=== PATIENT | female | born 1960 | race Caucasian/White ===

== ENCOUNTER → 2016-09-10 | Outpatient (CLI) | payer BC ==
[~2016-09-10] MED LIST: CINNAMON500 MG PO; FISH OIL1000 MG PO; GLUCOPHAGE1000 MG PO; PROZAC40 MG PO; SYNTHROID 0.0.025 MG PO; VITAMIN D1000 IU PO
== END ==
LOC: COL.RAD 09-04 15:00
DX: Z01.812 Encounter for preprocedural laboratory examination (principal); R91.1 Solitary pulmonary nodule; J43.9 Emphysema, unspecified; I77.810 Thoracic aortic ectasia; J98.4 Other disorders of lung; Z90.49 Acquired absence of other specified parts of digestive tract
CPT/HCPCS: Q9967

== ENCOUNTER 2022-12-05 07:43 | Inpatient (IN) | payer BC ==
[~2022-12-05] VITALS: Ht 172.7 cm; Wt 55.0 kg
[~2022-12-05 07:43] MED LIST changes: +B COMPLEX #11 TA1 PO; +GLUCOPHAGE XR750 MG PO; +INDERAL LA 60MG60 MG; +LIPITOR 10MG10 MG PO; +MELATONIN5 M1 PO; +MULTIVITAMIN FO1 CAP PO; +NEURONTIN300 MG/CAP PO; +PRIL40 PO; +SARAFEM20 M1 PO; +SYNTHROID0.112 MG/T PO; +UNISOM25 MG PO; +VITAMIN B12 781 TAB PO
[2022-12-05] MEDS ORDERED: NICODERM C21 MG/PATC TD (07:49)
[2022-12-05] MEDS ORDERED: ASPI325T6 PO (07:49)
[2022-12-05] MEDS ORDERED: ROXICODONE 55 MG/TAB PO (07:50)
[2022-12-05] MEDS ORDERED: TYLENOL 500MG500 MG PO (07:50)
[2022-12-05] MEDS ORDERED: OSCAL 500 TAB500 MG PO (07:50)
[2022-12-05] MEDS ORDERED: SENOKOT S 50 MG1 TAB PO (07:51)
[2022-12-05] MEDS ORDERED: VITAMIN C500 MG PO (07:51)
[2022-12-05 10:45] VITALS: BP 106/61; BP_SYST 61; PULSE 80; TEMP 98.5
--- NOTE | 2022-12-05 11:39 | NUR ---
PT ARRIVED TO UNIT VIA WHEELCHAIR FROM SURGICAL. PHISICAL THERAPY AT THE BEDSIDE TO EVAL PATIENT. PT ALERT AND ORIENTED. UPON OBTAINING VITAL SIGNS LOW O2 NOTED PT PUT ON 2 LITERS O2 VIA NASAL CANNULA. SATURATION IMPROVED. MEWS SCORE OF 4 NOTED. WILL REASSESS. CALL LIGHT WITHIN REACH.
[2022-12-05 13:01] VITALS: BP_SYST 106
--- NOTE | 2022-12-05 15:51 | NUR ---
Shower completed w/ OT this afternoon. Skin assessment completed by RNs: 1 abrasion to LLE w/ bruising. 1 laceration to left elbow - site cleaned w/ NS, covered w/ vaseline gauze, Telfa, tegaderm. 1 abrasion to right forearm noted to be bleeding - site cleansed w/ NS, covered w/ vaseline gauze, Telfa, tegaderm. Bruising noted to back of left elbow. Bruising noted to left AC site & finger of left hand. Fiberglass cast CDI to LUE. Bulky dressing to left hip CDI. No edema noted at the time of this assessment.
[2022-12-05 17:06] VITALS: BP 120/51; PULSE 87; TEMP 98.4
[2022-12-05 17:39] VITALS: BP 120/51; PULSE 87; TEMP 98.4
[2022-12-05 17:45] VITALS: BP_SYST 120
--- NOTE | 2022-12-05 19:30 | NUR ---
RECEIVED CHANGE OF SHIFT REPORT FROM DAY SHIFT RN. PATIENT RESTING IN BED, VISITORS IN ROOM, EXIT ALARM ON WITH CALL LIGHT IN REACH. DENIES ANY NEEDS AT TIME OF REPORT. OXYGEN CONTINUES PER NC.
[2022-12-06 05:08] VITALS: BP 139/68; PULSE 90; TEMP 98.4
[2022-12-06 07:00] VITALS: BP_SYST 139
--- NOTE | 2022-12-06 07:00 | NUR ---
PT RESTING IN BED. PT WEARING 2L NC. PT IS AXOX3. PT HAS CALL LIGHT AND INSTRUCTED TO CALL WTIH ALL NEEDS.
--- NOTE | 2022-12-06 07:22 | NUR ---
CHANGE OF SHIFT REPORT GIVEN TO DAY SHIFT DANI. PALOMO
--- NOTE | 2022-12-06 09:10 | NUR ---
PT DOWN TO THERAPY GYM
[2022-12-06 14:58] LABS: CREATININE, serum 0.66 mg/dL (0.57-1.11); POTASSIUM 3.3 mmol/L (3.5-4.5)
--- NOTE | 2022-12-06 16:13 | NUR ---
Head Greenskeeper and SW student met with Patient at bedside to conudct Care Managment ASsessment and brief SW role in IPR. Patient lives in [place], [place] with her and is established with PCP Dr. Leone. Patient requests discharge medications be sent to [facility]. Patient states that she has no stairs at home and states that she has grab bars in both bathrooms of her home. Patient states that she has familial and community supports. Patient reports to anticipate having reliable transportation when discharged. Patient inquires about the cost to rent a hospital bed, reporting that she is concerned with not having the assistance of grab bars on her bed at home.
[2022-12-06 17:19] VITALS: BP 119/96; PULSE 86; TEMP 98.3
[2022-12-06 19:00] VITALS: BP_SYST 119
--- NOTE | 2022-12-06 19:19 | NUR ---
REPORT RECEIVED FROM RODRIGO CULVER. PT RESTING IN BED AND TALKING WITH HER DAUGHTER. PT DENIES PAIN OR DISCOMFORT. CALL LIGHT IN PLACE. ALL NEEDS MET AT THIS TIME.
--- NOTE | 2022-12-06 20:01 | NUR ---
SHIFT ASSESSMENT COMPLETE, SEE DOCUMENTATION. PT RESTING IN BED WITH HER SON IN LAW AT BEDSIDE. NO C/O PAIN OR DISCOMFORT. CALL LIGHT IN PLACE. ALL NEEDS MET AT THIS TIME.
[2022-12-07 06:35] VITALS: BP 129/65; PULSE 80; TEMP 98.3
[2022-12-07 07:00] VITALS: BP_SYST 129
--- NOTE | 2022-12-07 08:45 | NUR ---
PATIENT AWAKE AND ALERT, RESTING IN BED. PATIENT DENIES ANY NEEDS OR COMPLAINTS AT THIS TIME. PATIENT SITTING UP , EATING BREAKFAST. FALL PRECAITIONS IN PLACE. CALL LIGHT WITHIN REACH.
--- NOTE | 2022-12-07 11:20 | NUR ---
Has lack of transportation kept you from medical appts, meetings, work, or from getting things needed for daily living? NO How often do you feel lonely or isolated from those around you? RARELY Over the past 5 days, how much of the time has pain made it hard for you to sleep? FREQUENTLY Over the past 5 days, how often have you limited your participation in therapy due to pain? RARELY/NOT AT ALL Over the past 5 days, how often have you limited your day-to-day activities because of pain? RARELY/NOT AT ALL Have you had 2 or more falls in the past year or any fall with an injury? YES Did you have major surgery during the 100 days prior to admission? YES
--- NOTE | 2022-12-07 13:55 | NUR ---
EDDA WITH PT
--- NOTE | 2022-12-07 15:44 | NUR ---
Armhole Baster Jumpbasting and SW student met with Patient to review progress towards treatment goals and review potential discharge services. Patient reports to be making progress towards treatment goals despite feeling fatigue after therapies. SW reviewed potential Home Health PT or OPPT when discharged. Patient presents with no concerns at this time.
[2022-12-07 17:24] VITALS: BP 128/62; PULSE 86; TEMP 98.7
[2022-12-07 19:00] VITALS: BP_SYST 128
--- NOTE | 2022-12-07 22:38 | NUR ---
SHIFT ASSESSMENT COMPLETE. VSS. A&OX4. ALL NIGHT MEDS GIVEN PER ORDER. PATIENT HAS PAIN 3/10. PAIN MEDS GIVEN PER ORDER. PATIENT ONLY COMPLAINS OF ROOM BEING HOT. CONTACTED SERVER SERVICE ASSISTANT AND HAD A FAN BROUGHT TO ROOM TO HELP COOL ROOM A BIT. PATIENT GREATFUL. PATIENT HAS NO OTHER COMPAINTS AT THIS TIME. FALL PRECAUTIONS IN PLACE AND CALL LIGHT IN REACH.
[2022-12-08 06:33] VITALS: BP 136/79; PULSE 81; TEMP 98.3
[2022-12-08 07:00] VITALS: BP_SYST 136
[2022-12-08 07:53] LABS: MEAN CELL VOLUME 88 fl (80.0-100.0); MEAN CORPUSCULAR HGB CONC 31 g/dl (33.0-37.0); PLATELET COUNT 362 K/mm3 (130-400); RED BLOOD COUNT 2.62 M/mm3 (4.10-5.30); REDCELL DISTRIBUTION WIDTH-CV 15.3 % (11.5-14.5)
[2022-12-08 07:54] LABS: HEMOGLOBIN 7.2 g/dl (12.5-16.0); MEAN CORPUSCULAR HEMOGLOBIN 27 pg (27-31)
[2022-12-08 08:20] LABS: CALCIUM 8.6 mg/dL (8.4-10.2); CREATININE, serum 0.6 mg/dL (0.57-1.11); POTASSIUM 3.2 mmol/L (3.5-4.5)
[2022-12-08 08:49] LABS: EOSINOPHIL 5 % (0-4); LYMPHOCYTE 14 % (20.0-51.0); METAMYELOCYTE 3 % (0-0); NEUTROPHILS 69 % (42.0-75.2)
[2022-12-08 08:50] LABS: PLATELET ESTIMATE NORMAL (NORMAL)
[2022-12-08 08:51] LABS: ANISOCYTOSIS 1+
--- NOTE | 2022-12-08 10:33 | NUR ---
PT ALERT AND ORIENTED. SITTING UP IN BED WATCHING TV, IS REQUESTING TO MOVE ROOMS R/T UNCLEAR PICTURE ON TV AFTER BEING REPLACED BY MAINTENANCE. VITAL SIGNS STABLE. SHE IS ON 2 LITERS OF O2 NC. WILL REPALCE POTASSIUM PER PROTOCOL. PT IS ABLE TO TRANSFER 1 ASSIST TO BSC. PROVIDER NOTIFIED OF HGB. HEAD TO TOE ASSESSMENT COMPLETE. CALL LIGHT WITHIN REACH. BED ALARM SET.
--- NOTE | 2022-12-08 11:52 | NUR ---
Retail Business Development Manager rounds: Patient accepted Retail Business Development Manager visit. A/C had not been working in her room for three days prior to today. TV is not getting good stenographer secretary today. Patient noticed that she had to go to therapy soon and needed to use the restroom first. She asked Retail Business Development Manager to return later today. Retail Business Development Manager prayed for her.
--- NOTE | 2022-12-08 13:29 | NUR ---
Kineseologist follow-up visit: Patient has her Sister and [id number] visiting.
[2022-12-08 17:16] VITALS: BP 110/59; PULSE 80; TEMP 98.2
[2022-12-08 19:00] VITALS: BP_SYST 110
--- NOTE | 2022-12-08 19:25 | NUR ---
REPORT RECIEVED FROM RODRIGO CULVER. PT RESTING IN BED WATCHING TV WITH FAMILY AT BEDSIDE. PT DENIES PAIN OR DISCOMFORT. CALL LIGHT IN PLACE. ALL NEEDS MET AT THIS TIME.
--- NOTE | 2022-12-08 23:49 | NUR ---
SHIFT ASSESSMENT COMPLETE, SEE DOCUMENTATION. PT REQUESTED TO BE MOVED TO ROOM 333 D/T HER ROOM BEING TOO HOT. PT MOVED ROOMS AND IS RESTING IN BED. PT HAD MINIMAL C/O LEFT HIP PAIN AND REQUESTED PRN TYLENOL. CALL LIGHT IN PLACE. ALL NEEDS MET AT THIS TIME.
--- NOTE | 2022-12-09 00:43 | NUR ---
PT STILL COMPLAINING OF RIGHT HIP PAIN AND REQUESTED PRN OXYCODONE. ALL NEEDS MET AT THIS TIME.
[2022-12-09 06:09] VITALS: BP 118/61; PULSE 70; TEMP 98.1
--- NOTE | 2022-12-09 06:57 | NUR ---
RECIEVED REPORT THIS AM. NOTHING EVENTFUL REPORTED OVERNIGHT.
[2022-12-09 06:58] VITALS: BP_SYST 118
[2022-12-09 07:31] LABS: MEAN CELL VOLUME 85 fl (80.0-100.0); MEAN CORPUSCULAR HGB CONC 33 g/dl (33.0-37.0); MEAN PLATELET VOLUME 9.4 fl (7.4-10.4); PLATELET COUNT 406 K/mm3 (130-400); RED BLOOD COUNT 2.71 M/mm3 (4.10-5.30); REDCELL DISTRIBUTION WIDTH-CV 15.3 % (11.5-14.5)
[2022-12-09 07:34] LABS: HEMOGLOBIN 7.5 g/dl (12.5-16.0); MEAN CORPUSCULAR HEMOGLOBIN 28 pg (27-31)
[2022-12-09 07:43] LABS: CALCIUM 8.8 mg/dL (8.4-10.2); CREATININE, serum 0.64 mg/dL (0.57-1.11); POTASSIUM 3.7 mmol/L (3.5-4.5)
[2022-12-09 08:07] LABS: ANISOCYTOSIS 1+; EOSINOPHIL 1 % (0-4); HYPOCHROMIA 1+; LYMPHOCYTE 14 % (20.0-51.0); METAMYELOCYTE 1 % (0-0); NEUTROPHILS 79 % (42.0-75.2); PLATELET ESTIMATE INCREASED (NORMAL)
--- NOTE | 2022-12-09 10:23 | NUR ---
PT LAYNING IN BED ALERT AND ORIENTED. REPORTS SHE HAD A GREAT NIGHTS SLEEP. SHE WAS HAPPY THIS MORING ABOUT BEING ABLE TO MAKE IT TO THE BATHROOM TO USE THE RESTROOM INSTEAD OF THE BSC. SHE HAS NOW BEEN ABLE TO WALK TO THE RESTROOM TWICE WITH 1 PERSON ASSISTANCE. HEAD TO TOE ASSESSMENT COMPLETE.VITAL SIGNS STABLE MEDICATED PER EMAR. CALL LIGHT WITHIN REACH. BED ALARM SET.
[2022-12-09 17:56] VITALS: BP 133/64; PULSE 77; TEMP 98.1
[2022-12-09 20:00] VITALS: BP_SYST 133
--- NOTE | 2022-12-09 20:00 | NUR ---
PATIENT IS A&O. VSS. PATIENT UP IN BATHROOM, 1 ASSIST BACK TO BED WITH PLATFORM WALKER. TTWB TO LLE. PATIENT C/O PAIN WITH MOVEMENT AND REQUESTING SOMETHING FOR PAIN BEFORE BED. GAVE PRN OXYCODONE WITH HS MEDS. TOLERATING GENERAL DIET, 1,000 FREE WATER RESTRICTION. HS BS WAS 114. HEAD TO TOE ASSESSMENT COMPLETE. PATIENT RESTING IN BED WITH CALL LIGHT IN REACH.
[2022-12-10 05:41] VITALS: BP 111/65; BP_SYST 11; PULSE 71; TEMP 97.9
--- NOTE | 2022-12-10 08:00 | NUR ---
PT RESTING IN BED WITH PAIN 1/10 IN L HIP. PT UP TO WHEELCHAIR WITH ASSIST X1 AND WALKER. NICOTINE PATCH APPLIED TO R SHOULDER AND REMOVED FROM L SHOULDER. NO NEEDS AT THIS TIME, WILL CONTINUE TO MONITOR.
[2022-12-10 08:38] LABS: PATHOLOGY DIFF REVIEW OK
--- NOTE | 2022-12-10 12:58 | NUR ---
Admission QIM scores were reviewed by the team. Code of 6 chosen for eating was determined by team discussion to be the most usual performance before interventions for this patient during the assessment period. Code of 88 chosen for oral hygiene was determined by team discussion to be the most usual performance before interventions for this patient during the assessment period. Code of 88 chosen for toileting hygiene was determined by team discussion to be the most usual performance for this patient during the discharge assessment period. Code of 88 chosen for toilet transfers was determined by team discussion to be the most usual performance for this patient during the discharge assessment period. Code of 3 chosen for putting on/taking off footwear was determined by team discussion to be the most usual performance before interventions for this patient during the assessment period. Code of 3 chosen for sit to lying was determined by team discussion to be the most usual performance before interventions for this patient during the assessment period. Code of 2 chosen for lying to sitting side of bed was determined by team discussion to be the most usual performance before interventions for this patient during the assessment period. Code of 2 chosen for sit to stand was determined by team discussion to be the most usual performance for this patient during the discharge assessment period. Code of 2 chosen for chair/bed to chair transfer was determined by team discussion to be the most usual performance before interventions for this patient during the assessment period. Code of 88 chosen for walking 10 feet was determined by team discussion to be the most usual performance for this patient during the discharge assessment period.--Mimi Vora,
[2022-12-10 17:57] VITALS: BP 112/57; PULSE 84; TEMP 97.4
[2022-12-10 19:20] VITALS: BP_SYST 112
--- NOTE | 2022-12-10 20:36 | NUR ---
LATE ENTRY BSSR RECEIVD FROM BOB RN PT RESTING COMFORTABLY IN BED WITH FAMILY AT BEDSIDE NO NEW REQUESTS AT THIS TIME.
--- NOTE | 2022-12-10 23:14 | NUR ---
PT HAS BEEN RESTING COMFORTABLY IN BED AND APPEARS TO BE SLEEPING. PT REPORTED PAIN BEFORE BEDTIME AT A 4/10 SHE STATED IT WAS ENOUGH OF AN ACHE TO KEEP HER A WAKE. PRN OXYCODONE ADMINISTERED X1 FOR THIS PAIN IN HER L HIP. DURING ASSESSMENT PATIENT ALERT AND ORIENTED X4, HAS A LIDOCAINE PATCH LOCATED ON L RIB SIDE. PT CHANGES POSITONS IN BED INDEPENDENTLY,
[2022-12-11 05:01] VITALS: BP 131/50; PULSE 78; TEMP 97.6
--- NOTE | 2022-12-11 05:15 | NUR ---
REPORT RECEIVED FROM PALOMO NELSON. PT SLEPT PEACEFULLY FOR THE REMAINER OF THE NIGHT. PT HELPED TO THE RESTROOM WITH NO ISSUES THIS MORNING. PT DENIED PAIN OR DISCOMFORT. CALL LIGHT WITHIN REACH.
--- NOTE | 2022-12-11 08:30 | NUR ---
PT RESTING IN BED WITH PAIN 1/10 IN L HIP. PT EATING BREAKFAST INDEPENDENTLY, NO NEEDS AT THIS TIME. DRESSINGS CLEAN, DRY, AND INTACT. WILL CONTINUE TO MONITOR.
--- NOTE | 2022-12-11 16:05 | NUR ---
Preservationist met with patient to check in. Patient reported therapy is going well and she is making progress. Patient talked about her goals and that she is working on transfers. SW discussed her role in ordering any equipment or services for patient and she verbalized understanding.
[2022-12-11 17:27] VITALS: BP 117/57; PULSE 75; TEMP 98
[2022-12-11 19:00] VITALS: BP_SYST 117
--- NOTE | 2022-12-11 19:17 | NUR ---
REPORT RECIEVED FROM BOB CULVER. PT RESTING IN BED WATCHING TV. PT INFORMED ME THAT PHYSICAL THERAPY WENT VERY WELL TODAY AND SHE IS PLEASED WITH HER PROGRESS. PT DENIES PAIN. CALL LIGHT IN PLACE. ALL NEEDS MET AT THIS TIME.
--- NOTE | 2022-12-11 20:39 | NUR ---
SHIFT ASSESSMENT COMPLETE, SEE DOCUMENTATION. PT AMBULATED TO BATHROOM UTILIZING GAIT BELT & WALKER. PT GAIT IMPROVING BUT STILL UNSTEADY. PT REPORTED LEFT HIP PAIN 4/10 AND STATED TYLENOL HELPED EARLIER BUT SHE WAS REQUESTING PRN NORCO. PRN NORCO ADMINISTERED PER ORDERS. PT BACK IN BED. NO OTHER CONCERNS. CALL LIGHT IN PLACE. ALL NEEDS MET AT THIS TIME.
[2022-12-12 05:16] VITALS: BP 132/61; PULSE 76; TEMP 97.8
[2022-12-12 07:09] VITALS: BP_SYST 132
--- NOTE | 2022-12-12 07:17 | NUR ---
Shift report received from night RN. No events reported overnight. Pt sleeping supine in bed. Call light in reach. Bed alarm is on.
--- NOTE | 2022-12-12 10:28 | NUR ---
Pt is off the unit w/ PT.
--- NOTE | 2022-12-12 14:56 | NUR ---
Pt sitting up in the recliner w/ BLE elevated on the footrest. Pain/discomfort denied. Call light in her reach. Chair alarm is on.
--- NOTE | 2022-12-12 15:28 | NUR ---
sand control worker met with IPR team regarding patient's progress. Patient is improving and may be ready for discharge on 12/18/2022. PT is recommending a wheelchair, platform walker and bed cane. sand control worker met with patient to discuss discharge planning and information from the IPR team meeting. sand control worker presented notes from the meeting and presented discharge date of 12/18/22. Patient was in agreement with discharge date. sand control worker provided list of options from Medicare.gov regarding home health options in the [facility]. Patient reviewed the options and chose to have the clinical social work aide send referrals to [facility] and [facility] home. Patient expressed her is taking the first two weeks she returns home off to be able to assist her at home. Patient would like to see what her insurance covers for the wheelchair and platform walker, but depending on the out of pocket cost, she may be able to order off of [facility] for less cost. Patient would like clinical social work aide to send referral to [facility]. sand control worker faxed home health referral to [facility] and [facility]. Discharge Plan: Home with Home Health
--- NOTE | 2022-12-12 17:23 | NUR ---
Lt hip dressing wet w/ clear drainage & not sticking well. Dressing changed - abd. pad x 2 & foam tape applied. Pt lying supine in bed w/ HOB elevated to approx 45 degrees. Pt requesting pain medication before bed tonight & will press her call button when ready. She denies other needs. Call light in reach. Bed alarm is on.
[2022-12-12 18:23] VITALS: BP 110/48; PULSE 76; TEMP 97.6
[2022-12-12 19:00] VITALS: BP_SYST 110
--- NOTE | 2022-12-12 23:49 | NUR ---
UPON SHIFT ASSESSMENT, JOHN WAS UP IN BED AND WATCHING TV. SHE WAS VERY ENTHUSIASTICALLY DESCRIBING THE IMPROVEMENTS IN HER MOBILITY AND HEALING. REGIONS DISTAL TO HER LT HIP AND LT RADIUS ORIF SHOWED MINIMAL EDEMA AND GOOD CAP REFILL. SHE RATED HER PAIN 2/10 AND DENIED SOA. CALL LIGHT WITHIN REACH
[2022-12-13 05:18] VITALS: BP 112/47; PULSE 71; TEMP 98
--- NOTE | 2022-12-13 05:41 | NUR ---
TOWARDS END OF SHIFT, JOHN WAS STILL SLEEPING. SHE HAD NO ISSUES DURING THE NIGHT AND DID NOT C/O PAIN. SHE WAS UP TO BATHROOM TWICE. HER CURRENT VSS ARE WNL.CALL LIGHT WITHIN REACH.
[2022-12-13 07:16] VITALS: BP_SYST 112
--- NOTE | 2022-12-13 07:17 | NUR ---
Shift report received from night RN. SBA provided as pt stood from bed to platform walker to ambulate to the bathroom. Pt back in bed to eat breakfast after toileting. Pt denies the need for pain medication at this time. Denies other needs. Call light in reach. Bed alarm is on.
--- NOTE | 2022-12-13 09:27 | NUR ---
Pt is off the unit for Group Therapy.
--- NOTE | 2022-12-13 09:45 | NUR ---
Family meeting conducted w/ pt, significant other, & daughter. Also present was the MD, PT, OT, & director global medical affairs/SW. MD discussed pt s medical issues. The team talked about how pt has progressed from a functional standpoint. Pt/Family stated they understood. Informed them of d/c for 12/18/22 w/ recommendations for Home Health PT/OT. They were all fine w/ this plan. They had some questions which the team answered.
--- NOTE | 2022-12-13 11:05 | NUR ---
Pt is off the unit for Group Therapy.
--- NOTE | 2022-12-13 13:50 | NUR ---
core worker was notified by [facility] and was notified they were unable to accept patient due to insurance. core worker was notified [facility] would be able to accept patient and her insurance should cover her services but she may have a deductible to meet first. core worker notified patient of acceptance and insurance information. core worker, Chuyita Guzman, met with Dr. Thrasher to review DME orders and faxed DME request to [facility]]. Social work will follow to provide cost of medical equipment with patient, so she could determine if she wanted to pay out of pocket or go through insurance. Discharge Plan: Home with Home Health
--- NOTE | 2022-12-13 14:18 | NUR ---
Pt sitting up in the recliner watching tv. Tylenol given approx 1 hr ago for pain at 4/10. Pt reports relief of pain. Other needs denied. Call light in reach. Chair alarm is on.
[2022-12-13 17:54] VITALS: BP 112/53; PULSE 75; TEMP 98.3
[2022-12-13 19:00] VITALS: BP_SYST 112
--- NOTE | 2022-12-13 20:12 | NUR ---
REPORT RECIEVED FROM RODRIGO CULVER. PT RESTING IN BED WITH FAMILY AT BEDSIDE. PT REPORTS SHE IS TIRED FROM THERAPY TODAY BUT DOING WELL. PT DENIES PAIN. CALL LIGHT IN PLACE. ALL NEEDS MET AT THIS TIME.
--- NOTE | 2022-12-13 22:19 | NUR ---
SHIFT ASSESSMENT COMPLETE, SEE DOCUMENTATION. PT HAS C/O LEFT HIP PAIN AND REQUESTS PRN OXYCODONE. PT IN BED WATCHING TV. CALL LIGHT IN PLACE. ALL NEEDS MET AT THIS TIME.
[2022-12-14 05:36] VITALS: BP 124/59; PULSE 73; TEMP 97.8
[2022-12-14 07:00] VITALS: BP_SYST 124
--- NOTE | 2022-12-14 07:18 | NUR ---
Shift report received from the night nurseRosa M RN.
--- NOTE | 2022-12-14 09:45 | NUR ---
Patient awake in bed eating breakfast, alert and oriented. Marcellus wrap dressing on left hand dry and intact with good circulation. Cap refill brisk. Patient numbness, tingling sensation at affected site. Bulky dressing to left hip intact , and no drainage noted. Bowel sounds active. Patient denies pain at this time. Call gutierrez within reach.
--- NOTE | 2022-12-14 12:52 | NUR ---
Patient sitting up in a wheelchair after lunch. Denies pain at this time and and states she will need some pain medication after PT.
--- NOTE | 2022-12-14 14:49 | NUR ---
Cake Mixer contacted Thu at [facility] who advised she has received referral for wheelchair and walker with platform attachment. She is still processing patient's referral and insurance at this time. SW met with patient to provide update. Patient is looking forward to returning home and hopefully attending her daughter's engagement democrat coming up.
[2022-12-14 17:00] VITALS: BP 124/52; PULSE 78; TEMP 98.2
--- NOTE | 2022-12-14 18:02 | NUR ---
Roxicodone administered for left hip pain.
[2022-12-15 05:17] VITALS: BP 110/45; PULSE 72; TEMP 98.2
[2022-12-15 07:00] VITALS: BP_SYST 110
--- NOTE | 2022-12-15 08:00 | NUR ---
PATIENT SITTING UP IN BED EATING BREAKFAST. PATIENT IS ALERT AND ORIENTED. SHIFT ASSESSMENT COMPLETED. MEDICATIONS GIVEN PER MAR. HEART SOUNDS S1 AND S2 SOUNDS NOTED. LUNG SOUNDS CLEAR IN ALL JACOBO. BOWEL SOUNDS AUDIBLE IN ALL QUADRANTS. LEFT WRIST SPLINTED WITH SHAE BANDAGE. LEFT HIP DRESSING IS CDI. VASILE HOSE ON. PATIENT DENIES NEEDS OR CONCERNS AT THIS TIME.
--- NOTE | 2022-12-15 09:46 | NUR ---
PATIENT GOING DOWN TO GROUP THERAPY.
--- NOTE | 2022-12-15 10:45 | NUR ---
PATIENT BACK FROM THERAPY. TOLERATED WELL.
--- NOTE | 2022-12-15 15:48 | NUR ---
PATIENT HAS HAD AN UNEVENTFUL DAY. WALKED THE HALLS THE THE PCT. NO CHANGES AT THIS TIME.
[2022-12-15 18:00] VITALS: BP 109/49; PULSE 77; TEMP 97.7
[2022-12-16 05:37] VITALS: BP 103/54; PULSE 69; TEMP 97.9
[2022-12-16 07:12] VITALS: BP_SYST 103
--- NOTE | 2022-12-16 07:13 | NUR ---
ANISHR RECEIVED FROM ANGELINA CULVER. PT RESTING IN BED THIS MORNING REQUESTING TYLENOL OF PAIN IN HER L HIP. PT REPORTS THE DISCOMFORT AT A /10. ASSESSMENT COMPLETE AT 0700 AND MEDICATIONS ADMINISTERED.
[2022-12-16 17:33] VITALS: BP 109/43; PULSE 76; TEMP 98
--- NOTE | 2022-12-16 17:36 | NUR ---
PT HAD AN UNEVENTFUL DAY. PT WAS ABLE TO VISIT WITH FRIENDS AND FAMILY THE MOST OF THE DAY AND EVEN WENT ON A WHEELCHAIR RIDE TO GET OUT OF HER ROOM. PT TOOK TYLENOL X2 FOR PAIN IN HER LEFT HIM THAT SHE REPORTED AT 2/10 BOTH TIMES. PT WANTS TO TAKE HER NIGHT TIME MEDICATIONS AROUNG 1829 BUT SHE REQUESTS NO LATER THAN 1919. PT STATES THAT IF SHE TAKES HER MEDICATIONS EARLY IT GIVES THEM TIME TO WORK AND SHE IS ABLE TO HAVE A MUCH BETTER NIGHTS SLEEP.
--- NOTE | 2022-12-17 10:27 | NUR ---
PT LAYING IN BED EATING BREAKFAST. ALERT AND ORIENTEDX4. NO COMPLAINTS OF PAIN AT THIS TIME. PT DRESSING TO THE LEFT HIP IS LEAKING DRAINAGE. THIS NURSE CHANGED DRESSING. DRESSING DRAINAGE IS GREEN AND HAS AN ODER TO IT. PT SKIN IS RED AROUND SUTURES WHERE THE TAPE IS.
--- NOTE | 2022-12-17 14:29 | NUR ---
Patient asked manager social services if patient's 's FMLA information was completed. cement storage worker contacted Mimi Vora, IPR director, whom was working on this request. Mimi expressed she needed a signature from the physician. cement storage worker was contacted by Pia from PT regarding status on patient's walker and wheelchair cost. cement storage worker expressed she would reach out to Home [facility] again regarding out of pocket cost for patient. cement storage worker was notified by Home Medical they were waiting to hear back from patient's Blue Cross and Blue Shield regarding coverage.
[2022-12-17] MEDS ORDERED: ASPI325T6 PO (15:37)
[2022-12-17] MEDS ORDERED: NICODERM C21 MG/PATC TD (15:37)
--- NOTE | 2022-12-17 16:08 | NUR ---
Has lack of transportation kept you from medical appts, meetings, work, or from getting things needed for daily living? no How often do you feel lonely or isolated from those around you? never Over the past 5 days, how much of the time has pain made it hard for you to sleep? occasionally Over the past 5 days, how often have you limited your participation in therapy due to pain? rarely/not at all Over the past 5 days, how often have you limited your day-to-day activities because of pain? rarely/not at all
[2022-12-17 17:33] VITALS: BP 109/75; PULSE 81; TEMP 98.6
[2022-12-17 19:00] VITALS: BP_SYST 109
--- NOTE | 2022-12-17 19:19 | NUR ---
REPORT RECIEVED FROM KEVIN CULVER. PT RESTING IN BED WATCHING TV. PT DENIES PAIN. CALL LIGHT IN PLACE. ALL NEEDS MET AT THIS TIME.
--- NOTE | 2022-12-17 19:56 | NUR ---
SHIFT ASSESSMENT COMPLETE, SEE DOCUMENTATION. PT RESTING IN BED WATCHING TV. PT REPORTS PRN GIVEN ON PREVIOUS SHIFT RELIEVED HER HIP PAIN AND SHE IS DOING WELL NOW. CALL LIGHT IN PLACE. ALL NEEDS MET AT THIS TIME.
[2022-12-18 05:31] VITALS: BP 100/57; PULSE 72; TEMP 98
--- NOTE | 2022-12-18 07:24 | NUR ---
NIGHT NURSE REPORTS NO NEW EVENTS OCCURED OVERNIGHT PT IS ON TRACK TO BE DISCHARGED TODAY.
[2022-12-18 07:25] VITALS: BP_SYST 100
--- NOTE | 2022-12-18 08:58 | NUR ---
refuge worker contacted [facility] whom expressed patient would be paying 30% and insurance would cover the remainder. refuge worker notified patient her cost for wheelchair would be around $300 and platform walker would be around $45. refuge worker called with patient to [facility] to ensure they have both in stock, whom expressed they would be able to deliver to patient's room before discharge at 11 AM. Discharge Plan: Home with [facility]
--- NOTE | 2022-12-18 09:44 | NUR ---
PT ALERT AND ORIENTED. HAPPY THIS MORNING TO BE GOING HOME TO HER ANIMALS. VITAL SIGNS STABLE. HEAD TO TOE ASSESSMENT COMPLETE. MEDICARTED PER EMAR. EATS BREAKFAST INDEPENDANTLY. SWALLOWS PILLS WHOLE WITH LIQUID. BED ALARM SET. CALL LIGHT WITHIN REACH.
--- NOTE | 2022-12-18 14:08 | NUR ---
Went over discharge instructions and follow up appointments, new medications and which meds to stop. Pt verbalizes understanding. pt packed up belongings with help of and was escorted to private vehicle with staff at 1130.
--- NOTE | 2022-12-18 16:28 | NUR ---
Discharge QIM scores were reviewed by the team. Code of 6 chosen for walking 50 feet w/ 2 turns was determined by team discussion to be the most usual performance before interventions for this patient during the discharge assessment period.--Mimi Vora, PD
== END 2022-12-18 11:30 | disposition home health service (06) | DRG 560 ==
PROVIDERS: Hospitalist; Physician Assistant; ADMIT Physical Medicine & Rehabilitation Sports Medicine
DX: S72.142D Displaced intertrochanteric fracture of left femur, subsequent encounter for closed fracture with routine healing (principal); E87.1 Hypo-osmolality and hyponatremia; R26.89 Other abnormalities of gait and mobility; F32.A Depression, unspecified; E11.40 Type 2 diabetes mellitus with diabetic neuropathy, unspecified; M06.9 Rheumatoid arthritis, unspecified; E03.9 Hypothyroidism, unspecified; S52.302D Unspecified fracture of shaft of left radius, subsequent encounter for closed fracture with routine healing; D72.829 Elevated white blood cell count, unspecified; D64.89 Other specified anemias; I10 Essential (primary) hypertension; G47.00 Insomnia, unspecified; Z74.09 Other reduced mobility; W11.XXXD Fall on and from ladder, subsequent encounter; Z79.84 Long term (current) use of oral hypoglycemic drugs; Z72.0 Tobacco use; Z79.891 Long term (current) use of opiate analgesic; Z79.82 Long term (current) use of aspirin; Z79.899 Other long term (current) drug therapy